=== PATIENT | male | born 1950 | race Hispanic/Latino ===

== ENCOUNTER 2018-05-24 14:32 | Inpatient (IN) | payer MEDICARE ==
[2018-05-24 15:53] LABS: Hematocrit TNR % (35.5-45.6); Hemoglobin TNR gm/dl (11.8-15.2); Mean Corpuscular Volume TNR fl (84-94); Red Blood Count TNR M/mm3 (3.65-5.03)
[2018-05-24 15:54] LABS: Eosinophils % (Auto) TNR % (0.0-4.3); Lymphocytes % (Auto) TNR % (13.4-35.0); Mean Corpuscular HGB Conc TNR % (32-34); Mean Corpuscular Hemoglobin TNR pg (28-32); Mean Platelet Volume TNR fl (6-12); Monocytes % (Auto) TNR % (0.0-7.3); Platelet Count TNR K/mm3 (140-440); Red Cell Distribution Width TNR % (13.2-15.2)
[2018-05-24 15:55] LABS: Basophils # (Auto) TNR K/mm3 (0.0-0.1); Basophils % (Auto) TNR % (0.0-1.8); Eosinophils # (Auto) TNR K/mm3 (0.0-0.4); Lymphocytes # (Auto) TNR K/mm3 (1.2-5.4); Monocytes # (Auto) TNR K/mm3 (0.0-0.8)
[2018-05-24 16:08] LABS: Alanine Aminotransferase 38 units/L (7-56); Albumin 4.2 g/dL (3.9-5); BUN/Creatinine Ratio 18; Blood Urea Nitrogen 11 mg/dL (9-20); Calcium 9.6 mg/dL (8.4-10.2); Hemolysis Index 30
[2018-05-24 16:11] LABS: Basophils % (Auto) 0.7 % (0.0-1.8); Eosinophils % (Auto) 0.1 % (0.0-4.3); Hematocrit 41.1 % (35.5-45.6); Hemoglobin 13.8 gm/dl (11.8-15.2); Lymphocytes # (Auto) 0.6 K/mm3 (1.2-5.4); Lymphocytes % (Auto) 13.4 % (13.4-35.0); Mean Corpuscular HGB Conc 34 % (32-34); Mean Corpuscular Hemoglobin 34 pg (28-32); Mean Corpuscular Volume 102 fl (84-94); Monocytes # (Auto) 0.6 K/mm3 (0.0-0.8); Monocytes % (Auto) 14.5 % (0.0-7.3); Red Blood Count 4.05 M/mm3 (3.65-5.03); Red Cell Distribution Width 15.9 % (13.2-15.2)
[2018-05-24 16:25] LABS: Platelet Count 79 K/mm3 (140-440)
[2018-05-24] MEDS ORDERED: VITAMIN B-1 100 MG, FOLVITE 1 MG, INFUVITE 10 ML in NACL 0.9% 1000 ML 1,000 ML IV ONE (16:27)
--- NOTE | 2018-05-24 16:32 | Emergency Department Report ---
HPI <ARI BROWN III - Last Filed: 05/24/18 21:11> - HPI HPI: 67-year-old male presents to the emergency department via EMS from [facility] for a medical clearance evaluation. The patient was sent to [place] from [facility] in [facility] with the complaint of alcohol dependence and need for detox/rehabilitation. The patient has a history of drinking 6-8 drinks per day. He also apparently has some history of multiple falls including a previous traumatic head injury causing a subdural hematoma. The patient had a CT scan done 2 days ago at [facility] that showed a smaller right subdural hematoma without any acute component seen, essentially showing his previous chronic subdural. He was then sent to [place] where they apparently initiated a 5 day Ativan detox protocol. However they found the patient to be altered with concern for dehydration and a concern for delirium tremens. The patient is awake and cooperative but his lucidity waxes and wanes. He himself has no current complaints at this time. <NINI WARREN S - Last Filed: 05/25/18 16:11> - General Chief Complaint: Psych Time Seen by Provider: 05/24/18 15:21 ED Past Medical Hx <ARI BROWN III - Last Filed: 05/24/18 21:11> - Past Medical History Additional medical history: subdural hematoma - Surgical History Past Surgical History?: Yes Additional Surgical History: hip fx surgery of right hip. left collar bone surgery - Social History Smoking Status: Former Smoker Substance Use Type: Alcohol <NINI WARREN - Last Filed: 05/25/18 16:11> - Medications Home Medications: Home Medications Medication Instructions Recorded Confirmed Last Taken Type No Known Home Medications [No 05/25/18 05/25/18 Unknown History Reported Home Medications] ED Review of Systems ROS: Stated complaint: PAIN Other details as noted in HPI <ARI BROWN III - Last Filed: 05/24/18 21:11> ROS: Stated complaint: PAIN Other details as noted in HPI Comment: All other systems reviewed and negative Constitutional: denies: chills, fever Eyes: denies: eye pain, eye discharge, vision change ENT: denies: ear pain, throat pain Respiratory: denies: cough, shortness of breath, wheezing Cardiovascular: denies: chest pain, palpitations Gastrointestinal: denies: abdominal pain, nausea, diarrhea Genitourinary: denies: urgency, dysuria Musculoskeletal: denies: back pain, joint swelling, arthralgia Skin: denies: rash, lesions Neurological: denies: headache, numbness <NINI WARREN Analisa - Last Filed: 05/25/18 16:11> Physical Exam - Physical Exam Vital Signs: Vital Signs 05/24/18 05/24/18 05/24/18 14:52 14:57 15:00 Temperature 98.9 F Pulse Rate 120 H 127 H Respiratory 20 18 22 Rate Blood Pressure 142/101 137/101 O2 Sat by Pulse 95 96 Oximetry 05/24/18 05/24/18 05/24/18 15:13 16:01 17:00 Temperature Pulse Rate 131 H 120 H Respiratory 24 19 22 Rate Blood Pressure 140/91 140/102 O2 Sat by Pulse 97 94 95 Oximetry 05/24/18 05/24/18 18:01 19:00 Temperature Pulse Rate 117 H 112 H Respiratory 24 26 H Rate Blood Pressure 154/102 141/101 O2 Sat by Pulse 96 Oximetry <ARI BROWN III - Last Filed: 05/24/18 21:11> - Physical Exam Vital Signs: Vital Signs 05/24/18 05/24/18 05/24/18 14:52 14:57 15:00 Temperature 98.9 F Pulse Rate 120 H 127 H Respiratory 20 18 22 Rate Blood Pressure 142/101 137/101 O2 Sat by Pulse 95 96 Oximetry 05/24/18 15:13 Temperature Pulse Rate Respiratory 24 Rate Blood Pressure O2 Sat by Pulse 97 Oximetry Physical Exam: GENERAL: The patient is well-developed well-nourished. HEENT: Normocephalic. Atraumatic. Patient has moist mucous membranes. EYES: Extraocular motions are intact. Pupils are equal and reactive to light bilaterally. NECK: Supple. Trachea is midline. CHEST/LUNGS: Clear to auscultation. There is no respiratory distress noted. HEART/CARDIOVASCULAR: Regular. There is mild to moderate tachycardia. There is no gallop rub or murmur. ABDOMEN: Abdomen is soft, nontender. Patient has normal bowel sounds. There is no abdominal distention. SKIN: Skin is warm and dry. NEURO: The patient is awake, alert, and oriented but does have some confusion. The patient is cooperative. No slurred speech. Cranial nerves II through XII grossly intact. Patient has moderate to severe distal extremity tremors. MUSCULOSKELETAL: There is no tenderness or deformity. There is no evidence of acute injury. <NINI WARREN - Last Filed: 05/25/18 16:11> ED Course Vital Signs 05/24/18 05/24/18 05/24/18 14:52 14:57 15:00 Temperature 98.9 F Pulse Rate 120 H 127 H Respiratory 20 18 22 Rate Blood Pressure 142/101 137/101 O2 Sat by Pulse 95 96 Oximetry 05/24/18 05/24/18 05/24/18 15:13 16:01 17:00 Temperature Pulse Rate 131 H 120 H Respiratory 24 19 22 Rate Blood Pressure 140/91 140/102 O2 Sat by Pulse 97 94 95 Oximetry 05/24/18 05/24/18 18:01 19:00 Temperature Pulse Rate 117 H 112 H Respiratory 24 26 H Rate Blood Pressure 154/102 141/101 O2 Sat by Pulse 96 Oximetry - Reevaluation(s) Reevaluation #2: Discussed results of head CT with radiologist. No acute findings. Chronic subdural hematoma and subdural hematoma is 1 mm smaller than it was on 2017 when compared to previous CT done at outside hospital. Hospitalist given updates. Hospitalist to admit patient. 05/24/18 21:11 <ARI BROWN III - Last Filed: 05/24/18 21:11> Vital Signs 05/24/18 05/24/18 05/24/18 14:52 14:57 15:00 Temperature 98.9 F Pulse Rate 120 H 127 H Respiratory 20 18 22 Rate Blood Pressure 142/101 137/101 O2 Sat by Pulse 95 96 Oximetry 05/24/18 15:13 Temperature Pulse Rate Respiratory 24 Rate Blood Pressure O2 Sat by Pulse 97 Oximetry <NINI WARREN - Last Filed: 05/25/18 16:11> ED Medical Decision Making - Lab Data Result diagrams: 05/24/18 16:03 05/24/18 15:32 <ARI BROWN III - Last Filed: 05/24/18 21:11> - Lab Data Result diagrams: 05/24/18 16:03 05/25/18 09:33 - EKG Data -: EKG Interpreted by Ks EKG shows normal: sinus rhythm, axis, intervals, QRS complexes, ST-T waves Rate: tachycardia (110 bpm) - EKG Data When compared to previous EKG there are: previous EKG unavailable Interpretation: normal EKG (with sinus tachycardia at 110 bpm) - Radiology Data Radiology results: report reviewed PROCEDURE: CT HEAD/BRAIN WO CON TECHNIQUE: Computerized tomography of the head was performed without contrast material. HISTORY: confusion COMPARISON: No prior studies are available for comparison. FINDINGS: There is a hypodense right frontal epidural fluid collection measuring up to 13 millimeters in thickness suggesting a chronic epidural hematoma. No acute hemorrhage is seen. There is central and cortical atrophy appropriate for the patient's age. There is no midline shift or herniation. The bony calvarium is intact. Paranasal sinuses are clear. IMPRESSION: 13 millimeter thick chronic right frontal epidural hematoma without significant mass effect. There is no midline shift. Dr. Brown was notified at 8:05 pm CDT. Transcribed By: CO Dictated By: BARTOLO ÁLVAREZ MD Electronically Authenticated By: BARTOLO ÁLVAREZ MD Signed Date/Time: 05/24/182105 - Medical Decision Making Patient presented from [facility] for further evaluation of his alcohol withdrawal due to some questionable delirium or altered mental status. The patient was a 16 on the alcohol withdrawal scale and has received some IV Ativan. He is slightly anxious but has significant extremity tremors and his lucidity waxes and wanes. The patient has a history of previous head trauma and subdural hematoma. There is a CT scan of the head without contrast that is on the chart from 2 days ago that was done in [place] that does not show any acute process regarding his previous subdural hematoma. The patient has tentatively been accepted for admission by the hospitalist, Dr. Tate, but a repeat CT scan of the head without contrast has been ordered. This will be done and is negative for any acute process, the patient will be admitted to the hospital. The CT scan results will be followed by my colleague, Dr. Brown, and if there is some abnormality found or acute process then he will seek further disposition and/or treatment. - Differential Diagnosis psychosis, alcohol withdrawal, dementia, delirium tremens <NINI WARREN - Last Filed: 05/25/18 16:11> Critical care attestation.: If time is entered above; I have spent that time in minutes in the direct care of this critically ill patient, excluding procedure time. <ARI BROWN III - Last Filed: 05/24/18 21:11> Critical Care Time: Yes Critical care time in (mins) excluding proc time.: 35 Critical care attestation.: If time is entered above; I have spent that time in minutes in the direct care of this critically ill patient, excluding procedure time. Critical care time spent on this patient and doing his initial evaluation, multiple re-evaluations, ordering of labs and imaging, ordering and evaluation of the alcohol withdrawal protocol and discussion with the admitting hospitalist. Critical Care Time: 35 minutes <NINI WARREN S - Last Filed: 05/25/18 16:11> ED Disposition <ARI BROWN III - Last Filed: 05/24/18 21:11> Is pt being admited?: Yes <NINI WARREN - Last Filed: 05/25/18 16:11> Clinical Impression: Alcohol withdrawal delirium, Chronic subdural hematoma, Encephalopathy Disposition: DC-09 OP ADMIT IP TO THIS HOSP Condition: Serious
[2018-05-24] MEDS: ATIVAN IV PRN ×3 (17:57→23:40)
--- NOTE | 2018-05-24 18:23 | History and Physical Report ---
History of Present Illness Chief complaint: Im shaking History of present illness: 67 YO Male currently an inpatient at [facility] for ETOH Detoxification with chronic Epidural Hematoma secondary to recurrent falls, ETOH Dependence, Severe Malnutrition presents to ED for evaluation. Pt was transfered from [facility] in [place], [place] for treatment of ETOH dependence. Pt was seen and evaluated prior to transfer for Epidural hematoma and was found to have no residual symptoms and no indication for surgical intervention. Pt seen and evaluated in ED. Pt states that he drinks 6-8 drinks daily, and his last drink was 4-5 days ago. Pt states that he has experienced tremors over the past 3 days. Pt denies fever, chills, CP, palpitatons, NVD, syncope, loss of bowel/ bladder continence. Pt is mildly confused but is able to provide detailed history. Pt was found by [place] staff to have tremors, mild confusion. EMS was notified, and the patient was transported to [facility] for further care and evaluation. Pt seen and evaluated in ED and found to have symptoms consistent with ETOH Withdrawl Syndrome, Encephalopathy. Pt underwent repeat CT Head. Results discussed with Radiologist. Pt has chronic Epidural Hemotoma that is decreasing in size in comparison to previous imaging, without active hemorrhage , and without midline shift. Pt admitted to telemetry and initiated on Alcohol withdrawl protocol.. Past History Past Medical History: other (Chronic SDH, ETOH Abuse, Severe Malnutrition) Past Surgical History: Other (Right Hip, left clavicle) Social history: single, alcohol abuse Family history: no significant family history (reviewed) Medications and Allergies Allergies Allergy/AdvReac Type Severity Reaction Status Date / Time No Known Allergies Allergy Unverified 05/24/18 15:12 Active Meds: Active Medications Thiamine HCl 100 mg/ Folic Acid 1 mg/ Multivitamins/Minerals 10 ml/ Sodium Chloride 1,011.2 mls @ 250 mls/hr IV ONCE ONE Stop: 05/24/18 20:29 Last Admin: 05/24/18 17:36 Dose: 250 mls/hr Lorazepam (Ativan) 2 mg IV Q1HR PRN PRN Reason: CIWA-Ar 8-15 Lorazepam (Ativan) 4 mg IV Q1HR PRN PRN Reason: CIWA-Ar 16-25 Last Admin: 05/24/18 17:57 Dose: 4 mg Lorazepam (Ativan) 4 mg IV Q15MIN PRN PRN Reason: CIWA-Ar >25 Review of Systems Constitutional: other (tremors), no weight loss, no weight gain, no fever, no chills Ears, nose, mouth and throat: no ear pain, no ear discharge, no tinnitis, no decreased hearing, no nose pain Cardiovascular: no chest pain, no orthopnea, no palpitations, no rapid/ irregular heart beat, no edema Respiratory: no cough, no cough with sputum, no excessive sputum, no hemoptysis , no shortness of breath Gastrointestinal: no nausea, no vomiting Genitourinary Male: no hematuria, no flank pain, no discharge, no urinary frequency, no urinary hesitancy, no incontinence Musculoskeletal: no neck stiffness, no neck pain, no arm numbness/tingling, no shooting leg pain, no leg numbness/tingling Integumentary: no rash, no pruritis, no sores Neurological: tremors, no head injury, no transient paralysis, no paralysis, no weakness, no parathesias, no tingling, no seizures, no syncope, no vertigo Psychiatric: no anxiety, no memory loss, no change in sleep habits, no sleep disturbances, no insomnia, no hypersomnia, no change in libido Endocrine: no cold intolerance, no heat intolerance, no polyphagia, no polydipsia, no polyuria, no nocturia Hematologic/Lymphatic: no easy bruising, no easy bleeding, no lymphadenopathy Allergic/Immunologic: no urticaria, no allergic rhinitis, no wheezing, no anaphylaxis, no angioedema Exam - Constitutional Vitals: Temp Pulse Resp BP Pulse Ox 98.9 F 127 H 24 137/101 97 05/24/18 14:57 05/24/18 15:00 05/24/18 15:13 05/24/18 15:00 05/24/18 15:13 General appearance: Present: mild distress, cachectic - EENT Eyes: Present: PERRL ENT: hearing intact, clear oral mucosa - Neck Neck: Present: supple, normal ROM - Respiratory Respiratory effort: normal Respiratory: bilateral: CTA - Cardiovascular Heart Sounds: Present: S1 & S2. Absent: rub, click - Extremities Extremities: pulses symmetrical, No edema Peripheral Pulses: within normal limits - Abdominal General gastrointestinal: Present: soft, non-tender, non-distended, normal bowel sounds Male genitourinary: Present: normal - Integumentary Integumentary: Present: clear, warm, dry - Musculoskeletal Musculoskeletal: gait normal, strength equal bilaterally - Psychiatric Psychiatric: appropriate mood/affect, intact judgment & insight, agitated - Neurologic Neurologic: CNII-XII intact, moves all extremities Results - Labs CBC & Chem 7: 05/24/18 16:03 05/24/18 15:32 Labs: Abnormal lab results 05/24/18 05/24/18 05/24/18 Range/Units 15:32 15:32 15:32 WBC (4.5-11.0) K/mm3 MCV (84-94) fl MCH (28-32) pg RDW (13.2-15.2) % Plt Count (140-440) K/mm3 [place] % (Auto) (0.0-7.3) % Lymph # (1.2-5.4) K/mm3 Seg Neutrophils % (40.0-70.0) % Sodium 136 L (137-145) mmol/L Chloride 96.6 L (98-107) mmol/L Creatinine 0.6 L (0.8-1.5) mg/dL Glucose 143 H (75-100) mg/dL Total Bilirubin 1.50 H (0.1-1.2) mg/dL AST 52 H (5-40) units/L Salicylates < 0.3 L (2.8-20.0) mg/dL Acetaminophen < 5.0 L (10.0-30.0) ug/mL 05/24/18 Range/Units 16:03 WBC 4.4 L (4.5-11.0) K/mm3 MCV 102 H (84-94) fl MCH 34 H (28-32) pg RDW 15.9 H (13.2-15.2) % Plt Count 79 L (140-440) K/mm3 [place] % (Auto) 14.5 H (0.0-7.3) % Lymph # 0.6 L (1.2-5.4) K/mm3 Seg Neutrophils % 71.3 H (40.0-70.0) % Sodium (137-145) mmol/L Chloride (98-107) mmol/L Creatinine (0.8-1.5) mg/dL Glucose (75-100) mg/dL Total Bilirubin (0.1-1.2) mg/dL AST (5-40) units/L Salicylates (2.8-20.0) mg/dL Acetaminophen (10.0-30.0) ug/mL Assessment and Plan - Patient Problems (1) Alcohol withdrawal delirium Current Visit: Yes Status: Acute Plan to address problem: Thiamine, Folic Acid, Multivitamin, Ativan PRN, CIWA protocol. (2) Epidural hematoma Current Visit: Yes Status: Acute Plan to address problem: Neuro checks, supportive care, Fall precautions,Repeat CT Head if neuro status changes. (3) Severe malnutrition Current Visit: Yes Status: Acute Plan to address problem: Encourage increased protein intake. (4) Encephalopathy Current Visit: Yes Status: Acute Plan to address problem: CT Head, Neuro checks, thyroid panel, aspiration precautions. (5) DVT prophylaxis Current Visit: Yes Status: Acute Plan to address problem: SCD to BLE while in bed.
[2018-05-24] MEDS ORDERED: PROVENTIL IH PRN (20:46)
[2018-05-24] MEDS ORDERED: ZOFRAN IV PRN (20:46)
[2018-05-24] MEDS ORDERED: TYLENOL PO PRN (20:46)
[2018-05-24] MEDS ORDERED: SODIUM CHLORIDE FLUSH SYRINGE 10 ML IV PRN (20:46)
[2018-05-24] MEDS ORDERED: THERAGRAN Tab PO ONE ×2 (20:48→22:01)
[2018-05-24] MEDS ORDERED: VITAMIN B-1 PO ONE (20:48)
--- NOTE | 2018-05-24 21:07 | Cat Scan Report ---
FINAL REPORT PROCEDURE: CT HEAD/BRAIN WO CON TECHNIQUE: Computerized tomography of the head was performed without contrast material. HISTORY: confusion COMPARISON: No prior studies are available for comparison. FINDINGS: There is a hypodense right frontal epidural fluid collection measuring up to 13 millimeters in thickness suggesting a chronic epidural hematoma. No acute hemorrhage is seen. There is central and cortical atrophy appropriate for the patient's age. There is no midline shift or herniation. The bony calvarium is intact. Paranasal sinuses are clear. IMPRESSION: 13 millimeter thick chronic right frontal epidural hematoma without significant mass effect. There is no midline shift. Dr. Richmond was notified at 8:05 pm CDT.
[2018-05-24] MEDS ORDERED: VITAMIN B-1 ONE (22:03)
[2018-05-24] MEDS: SODIUM CHLORIDE FLUSH SYRINGE 10 ML IV SCH (22:18)
[2018-05-24 22:24] LABS: Free T4 (Free Thyroxine) 1.27 ng/dL (0.76-1.46)
[2018-05-25] MEDS: ATIVAN IV PRN ×6 (04:16→22:17)
[2018-05-25 07:20] LABS: Bilirubin,Urine NEG (Negative); Blood,Urine SM (Negative); Calcium Oxalate Crystals,Urine 3+; Color,Urine Yellow (Yellow); Mucus,Urine FEW /HPF; Protein,Urine <15 mg/dL mg/dL (Negative)
[2018-05-25 07:36] LABS: Amphetamine Screen,Urine PRESUMPTIVE NEGATIVE; Benzodiazepines Screen,Urine PRESUMPTIVE NEGATIVE; Cannabinoid Screen,Urine PRESUMPTIVE NEGATIVE; Cocaine Screen,Urine PRESUMPTIVE NEGATIVE; Methadone Screen,Urine PRESUMPTIVE NEGATIVE; Opiate Screen,Urine PRESUMPTIVE NEGATIVE
[2018-05-25] MEDS: FOLVITE PO SCH (10:17)
[2018-05-25] MEDS: SODIUM CHLORIDE FLUSH SYRINGE 10 ML IV SCH ×2 (10:18→22:42)
[2018-05-25 11:08] LABS: Alanine Aminotransferase 36 units/L (7-56); Albumin 4.3 g/dL (3.9-5); BUN/Creatinine Ratio 24; Blood Urea Nitrogen 12 mg/dL (9-20); Calcium 9.4 mg/dL (8.4-10.2); Hemolysis Index 13
--- NOTE | 2018-05-25 15:19 | Progress Note ---
Assessment and Plan Assessment and plan: 67 YO Male currently an inpatient at [facility] for ETOH Detoxification with chronic Epidural Hematoma secondary to recurrent falls, ETOH Dependence, Severe Malnutrition presents to ED for evaluation. Pt was transfered from [facility] in [place], [place] for treatment of ETOH dependence. Pt was seen and evaluated prior to transfer for Epidural hematoma and was found to have no residual symptoms and no indication for surgical intervention. Pt seen and evaluated in ED. Pt states that he drinks 6-8 drinks daily, and his last drink was 4-5 days ago. Pt states that he has experienced tremors over the past 3 days. Pt denies fever, chills, CP, palpitatons, NVD, syncope, loss of bowel/ bladder continence. Pt is mildly confused but is able to provide detailed history. Pt was found by [place] staff to have tremors, mild confusion. EMS was notified, and the patient was transported to [facility] for further care and evaluation. Pt seen and evaluated in ED and found to have symptoms consistent with ETOH Withdrawl Syndrome, Encephalopathy. Pt underwent repeat CT Head. Results discussed with Radiologist. Pt has chronic Epidural Hemotoma that is decreasing in size in comparison to previous imaging, without active hemorrhage , and without midline shift. Pt admitted to telemetry and initiated on Alcohol withdrawal protocol. (1) Alcohol withdrawal delirium Current Visit: Yes Status: Acute Plan to address problem: Thiamine, Folic Acid, Multivitamin, Ativan PRN, CIWA protocol. Still with tremor, Continue current management (2) Epidural hematoma Current Visit: Yes Status: Acute Plan to address problem: Neuro checks, supportive care, Fall precautions, Repeat CT Head if neuro status changes. (3) Severe malnutrition Current Visit: Yes Status: Acute Plan to address problem: Encourage increased protein intake. (4) Encephalopathy Current Visit: Yes Status: Acute Plan to address problem: CT Head, Neuro checks, thyroid panel, aspiration precautions. (5) DVT prophylaxis Current Visit: Yes Status: Acute Plan to address problem: SCD to BLE while in bed. History Interval history: Patient seen and examined, still with tremors and some confusion Hospitalist Physical - Physical exam Narrative exam: General appearance: Present: mild distress, cachectic, tremor - EENT Eyes: Present: PERRL ENT: hearing intact, clear oral mucosa - Neck Neck: Present: supple, normal ROM - Respiratory Respiratory effort: normal Respiratory: bilateral: CTA - Cardiovascular Heart Sounds: Present: S1 & S2. Absent: rub, click - Extremities Extremities: pulses symmetrical, No edema Peripheral Pulses: within normal limits - Abdominal General gastrointestinal: Present: soft, non-tender, non-distended, normal bowel sounds Male genitourinary: Present: normal - Integumentary Integumentary: Present: clear, warm, dry - Musculoskeletal Musculoskeletal: gait normal, strength equal bilaterally - Psychiatric Psychiatric: appropriate mood/affect, intact judgment & insight, agitated - Neurologic Neurologic: CNII-XII intact, moves all extremities - Constitutional Vitals: Temp Pulse Resp BP Pulse Ox 97.8 F 143 H 20 113/85 96 05/25/18 12:52 05/25/18 12:52 05/25/18 12:52 05/25/18 12:52 05/25/18 12:52 General appearance: Present: mild distress, cachectic Results - Labs CBC & Chem 7: 05/24/18 16:03 05/25/18 09:33 Labs: Laboratory Last Values WBC 4.4 K/mm3 (4.5-11.0) L 05/24/18 16:03 RBC 4.05 M/mm3 (3.65-5.03) 05/24/18 16:03 Hgb 13.8 gm/dl (11.8-15.2) 05/24/18 16:03 Hct 41.1 % (35.5-45.6) 05/24/18 16:03 MCV 102 fl (84-94) H 05/24/18 16:03 MCH 34 pg (28-32) H 05/24/18 16:03 MCHC 34 % (32-34) 05/24/18 16:03 RDW 15.9 % (13.2-15.2) H 05/24/18 16:03 Plt Count 79 K/mm3 (140-440) L 05/24/18 16:03 Lymph % (Auto) 13.4 % (13.4-35.0) 05/24/18 16:03 [place] % (Auto) 14.5 % (0.0-7.3) H 05/24/18 16:03 Eos % (Auto) 0.1 % (0.0-4.3) 05/24/18 16:03 Baso % (Auto) 0.7 % (0.0-1.8) 05/24/18 16:03 Lymph # 0.6 K/mm3 (1.2-5.4) L 05/24/18 16:03 [place] # 0.6 K/mm3 (0.0-0.8) 05/24/18 16:03 Eos # 0.0 K/mm3 (0.0-0.4) 05/24/18 16:03 Baso # 0.0 K/mm3 (0.0-0.1) 05/24/18 16:03 Add Manual Diff TNR 05/24/18 15:32 Seg Neutrophils % 71.3 % (40.0-70.0) H 05/24/18 16:03 Seg Neutrophils # 3.1 K/mm3 (1.8-7.7) 05/24/18 16:03 Sodium 138 mmol/L (137-145) 05/25/18 09:33 Potassium 3.5 mmol/L (3.6-5.0) L 05/25/18 09:33 Chloride 97.8 mmol/L (98-107) L 05/25/18 09:33 Carbon Dioxide 20 mmol/L (22-30) L 05/25/18 09:33 Anion Gap 24 mmol/L 05/25/18 09:33 BUN 12 mg/dL (9-20) 05/25/18 09:33 Creatinine 0.5 mg/dL (0.8-1.5) L 05/25/18 09:33 Estimated GFR > 60 ml/min 05/25/18 09:33 BUN/Creatinine Ratio 24 % 05/25/18 09:33 Glucose 104 mg/dL (75-100) H 05/25/18 09:33 Calcium 9.4 mg/dL (8.4-10.2) 05/25/18 09:33 Phosphorus 3.20 mg/dL (2.5-4.5) 05/24/18 15:32 Magnesium 2.10 mg/dL (1.7-2.3) 05/24/18 15:32 Total Bilirubin 1.80 mg/dL (0.1-1.2) H 05/25/18 09:33 AST 49 units/L (5-40) H 05/25/18 09:33 ALT 36 units/L (7-56) 05/25/18 09:33 Alkaline Phosphatase 100 units/L (35-129) 05/25/18 09:33 Ammonia 35.0 umol/L (25-60) 05/24/18 15:49 Total Protein 7.5 g/dL (6.3-8.2) 05/25/18 09:33 Albumin 4.3 g/dL (3.9-5) 05/25/18 09:33 Albumin/Globulin Ratio 1.3 % 05/25/18 09:33 TSH 2.340 mlU/mL (0.270-4.200) 05/24/18 15:32 Free T4 1.27 ng/dL (0.76-1.46) 05/24/18 15:32 Urine Color Yellow (Yellow) 05/25/18 06:30 Urine Turbidity Slightly-cloudy (Clear) 05/25/18 06:30 Urine pH 7.0 (5.0-7.0) 05/25/18 06:30 Ur Specific [place] 1.016 (1.003-1.030) 05/25/18 06:30 Urine Protein <15 mg/dl mg/dL (Negative) 05/25/18 06:30 Urine Glucose (UA) Neg mg/dL (Negative) 05/25/18 06:30 Urine Ketones Tr mg/dL (Negative) 05/25/18 06:30 Urine Blood Sm (Negative) 05/25/18 06:30 Urine Nitrite Neg (Negative) 05/25/18 06:30 Urine Bilirubin Neg (Negative) 05/25/18 06:30 Urine Urobilinogen 4.0 mg/dL (<2.0) 05/25/18 06:30 Ur Leukocyte Esterase Neg (Negative) 05/25/18 06:30 Urine WBC (Auto) 3.0 /HPF (0.0-6.0) 05/25/18 06:30 Urine RBC (Auto) 5.0 /HPF (0.0-6.0) 05/25/18 06:30 U Epithel Cells (Auto) < 1.0 /HPF (0-13.0) 05/25/18 06:30 Calcium Oxalate Crystal 3+ 05/25/18 06:30 Urine Mucus Few /HPF 05/25/18 06:30 Salicylates < 0.3 mg/dL (2.8-20.0) L 05/24/18 15:32 Urine Opiates Screen Presumptive negative 05/25/18 06:30 Urine Methadone Screen Presumptive negative 05/25/18 06:30 Acetaminophen < 5.0 ug/mL (10.0-30.0) L 05/24/18 15:32 Ur Barbiturates Screen Presumptive negative 05/25/18 06:30 Ur Phencyclidine Scrn Presumptive negative 05/25/18 06:30 Ur Amphetamines Screen Presumptive negative 05/25/18 06:30 U Benzodiazepines Scrn Presumptive negative 05/25/18 06:30 Urine Cocaine Screen Presumptive negative 05/25/18 06:30 U Marijuana (THC) Screen Presumptive negative 05/25/18 06:30 Drugs of Abuse Note Disclamer 05/25/18 06:30 Plasma/Serum Alcohol < 0.01 % (0-0.07) 05/24/18 15:32
[2018-05-25] MEDS: 1: FOLVITE 1 MG, INFUVITE 10 ML, VITAMIN B-1 100 MG in NACL 0.9% 1000 ML 988.8 ML 2: NA IV SCH (18:16)
[2018-05-26] MEDS: ATIVAN IV PRN ×3 (00:41→10:52)
[2018-05-26] MEDS: 1: FOLVITE 1 MG, INFUVITE 10 ML, VITAMIN B-1 100 MG in NACL 0.9% 1000 ML 988.8 ML 2: NA IV SCH ×2 (02:40→14:32)
[2018-05-26] MEDS ORDERED: NACL 0.9% 1000 ML 1,000 ML IV SCH (03:00)
[2018-05-26 05:48] LABS: Hematocrit 42.6 % (35.5-45.6); Hemoglobin 14.4 gm/dl (11.8-15.2); Mean Corpuscular HGB Conc 34 % (32-34); Mean Corpuscular Hemoglobin 35 pg (28-32); Mean Corpuscular Volume 103 fl (84-94); Red Blood Count 4.14 M/mm3 (3.65-5.03); Red Cell Distribution Width 14.9 % (13.2-15.2)
[2018-05-26 06:07] LABS: Alanine Aminotransferase 30 units/L (7-56); Albumin 3.8 g/dL (3.9-5); BUN/Creatinine Ratio 40; Blood Urea Nitrogen 16 mg/dL (9-20); Calcium 8.9 mg/dL (8.4-10.2); Hemolysis Index 34
[2018-05-26 06:38] LABS: Platelet Count 83 K/mm3 (140-440)
[2018-05-26] MEDS: SODIUM CHLORIDE FLUSH SYRINGE 10 ML IV SCH ×2 (10:53→21:39)
[2018-05-26] MEDS: FOLVITE PO SCH (10:53)
[2018-05-26] MEDS: K-DUR PO SCH (14:31)
[2018-05-26] MEDS: LIBRIUM PO SCH ×2 (14:31→19:44)
--- NOTE | 2018-05-26 15:02 | Progress Note ---
Assessment and Plan Assessment and plan: Alcohol withdrawal with delirium -Continue [facility] protocol -Librium added Epidural hematoma likely 2/2 falls -Continue fall precautions Hypokalemia -on repletion, will monitor level Elevated liver function tests -Likely secondary to alcohol abuse -Will do abdominal ultrasound for further evaluation Disposition: For discharge when medically stable History Interval history: Patient was seen severely agitated and in restraints. Hospitalist Physical - Constitutional Vitals: Temp Pulse Resp BP Pulse Ox 98.1 F 94 H 20 132/93 96 05/26/18 04:56 05/26/18 08:56 05/26/18 08:56 05/26/18 08:56 05/26/18 08:56 General appearance: Present: other (Pt was seen severely agitated) - EENT Eyes: Present: PERRL, EOM intact ENT: hearing intact, clear oral mucosa - Neck Neck: Present: supple - Respiratory Respiratory effort: normal Respiratory: bilateral: CTA - Cardiovascular Rhythm: regular Heart Sounds: Present: S1 & S2 - Extremities Extremities: No edema - Abdominal General gastrointestinal: soft, non-tender, non-distended, normal bowel sounds - Neurologic Neurologic: CNII-XII intact Results - Labs CBC & Chem 7: 05/26/18 04:37 05/26/18 04:37 Labs: Laboratory Last Values WBC 5.1 K/mm3 (4.5-11.0) 05/26/18 04:37 RBC 4.14 M/mm3 (3.65-5.03) 05/26/18 04:37 Hgb 14.4 gm/dl (11.8-15.2) 05/26/18 04:37 Hct 42.6 % (35.5-45.6) 05/26/18 04:37 MCV 103 fl (84-94) H 05/26/18 04:37 MCH 35 pg (28-32) H 05/26/18 04:37 MCHC 34 % (32-34) 05/26/18 04:37 RDW 14.9 % (13.2-15.2) 05/26/18 04:37 Plt Count 83 K/mm3 (140-440) L 05/26/18 04:37 Lymph % (Auto) 13.4 % (13.4-35.0) 05/24/18 16:03 [place] % (Auto) 14.5 % (0.0-7.3) H 05/24/18 16:03 Eos % (Auto) 0.1 % (0.0-4.3) 05/24/18 16:03 Baso % (Auto) 0.7 % (0.0-1.8) 05/24/18 16:03 Lymph # 0.6 K/mm3 (1.2-5.4) L 05/24/18 16:03 [place] # 0.6 K/mm3 (0.0-0.8) 05/24/18 16:03 Eos # 0.0 K/mm3 (0.0-0.4) 05/24/18 16:03 Baso # 0.0 K/mm3 (0.0-0.1) 05/24/18 16:03 Add Manual Diff TNR 05/24/18 15:32 Seg Neutrophils % 71.3 % (40.0-70.0) H 05/24/18 16:03 Seg Neutrophils # 3.1 K/mm3 (1.8-7.7) 05/24/18 16:03 Sodium 139 mmol/L (137-145) 05/26/18 04:37 Potassium 3.4 mmol/L (3.6-5.0) L 05/26/18 04:37 Chloride 105.3 mmol/L (98-107) 05/26/18 04:37 Carbon Dioxide 20 mmol/L (22-30) L 05/26/18 04:37 Anion Gap 17 mmol/L 05/26/18 04:37 BUN 16 mg/dL (9-20) 05/26/18 04:37 Creatinine 0.4 mg/dL (0.8-1.5) L 05/26/18 04:37 Estimated GFR > 60 ml/min 05/26/18 04:37 BUN/Creatinine Ratio 40 % 05/26/18 04:37 Glucose 68 mg/dL (75-100) L 05/26/18 04:37 Calcium 8.9 mg/dL (8.4-10.2) 05/26/18 04:37 Phosphorus 3.20 mg/dL (2.5-4.5) 05/24/18 15:32 Magnesium 2.10 mg/dL (1.7-2.3) 05/24/18 15:32 Total Bilirubin 1.50 mg/dL (0.1-1.2) H 05/26/18 04:37 AST 42 units/L (5-40) H 05/26/18 04:37 ALT 30 units/L (7-56) 05/26/18 04:37 Alkaline Phosphatase 87 units/L (35-129) 05/26/18 04:37 Ammonia 35.0 umol/L (25-60) 05/24/18 15:49 Total Protein 6.8 g/dL (6.3-8.2) 05/26/18 04:37 Albumin 3.8 g/dL (3.9-5) L 05/26/18 04:37 Albumin/Globulin Ratio 1.3 % 05/26/18 04:37 TSH 2.340 mlU/mL (0.270-4.200) 05/24/18 15:32 Free T4 1.27 ng/dL (0.76-1.46) 05/24/18 15:32 Urine Color Yellow (Yellow) 05/25/18 06:30 Urine Turbidity Slightly-cloudy (Clear) 05/25/18 06:30 Urine pH 7.0 (5.0-7.0) 05/25/18 06:30 Ur Specific [place] 1.016 (1.003-1.030) 05/25/18 06:30 Urine Protein <15 mg/dl mg/dL (Negative) 05/25/18 06:30 Urine Glucose (UA) Neg mg/dL (Negative) 05/25/18 06:30 Urine Ketones Tr mg/dL (Negative) 05/25/18 06:30 Urine Blood Sm (Negative) 05/25/18 06:30 Urine Nitrite Neg (Negative) 05/25/18 06:30 Urine Bilirubin Neg (Negative) 05/25/18 06:30 Urine Urobilinogen 4.0 mg/dL (<2.0) 05/25/18 06:30 Ur Leukocyte Esterase Neg (Negative) 05/25/18 06:30 Urine WBC (Auto) 3.0 /HPF (0.0-6.0) 05/25/18 06:30 Urine RBC (Auto) 5.0 /HPF (0.0-6.0) 05/25/18 06:30 U Epithel Cells (Auto) < 1.0 /HPF (0-13.0) 05/25/18 06:30 Calcium Oxalate Crystal 3+ 05/25/18 06:30 Urine Mucus Few /HPF 05/25/18 06:30 Salicylates < 0.3 mg/dL (2.8-20.0) L 05/24/18 15:32 Urine Opiates Screen Presumptive negative 05/25/18 06:30 Urine Methadone Screen Presumptive negative 05/25/18 06:30 Acetaminophen < 5.0 ug/mL (10.0-30.0) L 05/24/18 15:32 Ur Barbiturates Screen Presumptive negative 05/25/18 06:30 Ur Phencyclidine Scrn Presumptive negative 05/25/18 06:30 Ur Amphetamines Screen Presumptive negative 05/25/18 06:30 U Benzodiazepines Scrn Presumptive negative 05/25/18 06:30 Urine Cocaine Screen Presumptive negative 05/25/18 06:30 U Marijuana (THC) Screen Presumptive negative 05/25/18 06:30 Drugs of Abuse Note Disclamer 05/25/18 06:30 Plasma/Serum Alcohol < 0.01 % (0-0.07) 05/24/18 15:32
--- NOTE | 2018-05-26 16:54 | Ultrasound Report ---
FINAL REPORT EXAM: US ABDOMEN LIMITED HISTORY: elevated LFT TECHNIQUE: Grayscale and color-flow imaging of the right upper quadrant was performed. Comparison: None FINDINGS: Pancreas: Not well visualized due to artifact. Liver: Visualization detail is somewhat limited by artifact. There is a coarsened echotexture which can be seen with hepatocellular disease. There is no demonstration of a focal mass. There is increased echogenicity of the liver suggestive of fatty infiltration/steatosis. Gallbladder: Moderately distended and without evidence of gallstones or gallbladder wall thickening (1.6 millimeters). There is no demonstration of pericholecystic fluid. Common bile duct: Normal caliber (4.8 millimeters). Right kidney: Measures 11.2 centimeters in the maximal craniocaudal dimension. There is no demonstration of hydronephrosis, renal calculi or renal mass. No free fluid is demonstrated in the right upper quadrant. IMPRESSION: 1. Study somewhat degraded by artifact. 2. Pancreas not well visualized. 3. Coarsened echotexture of the liver which can be seen with hepatocellular disease. Evidence of fatty infiltration/steatosis of the liver. If further imaging is required, CT may be helpful. 4. No ultrasound evidence of acute cholecystitis or gallstones.
[2018-05-26] MEDS: FOLVITE 1 MG, VITAMIN B-1 100 MG, INFUVITE 10 ML in NACL 0.9% 1000 ML 1,000 ML IV SCH (18:15)
[2018-05-27] MEDS: NACL 0.9% 1000 ML 1,000 ML IV SCH ×2 (02:29→15:12)
[2018-05-27] MEDS: LIBRIUM PO SCH ×4 (08:45→21:33)
[2018-05-27] MEDS: K-DUR PO SCH (09:26)
[2018-05-27] MEDS: SODIUM CHLORIDE FLUSH SYRINGE 10 ML IV SCH ×2 (09:27→21:54)
--- NOTE | 2018-05-27 10:43 | Progress Note ---
Assessment and Plan Assessment and plan: Alcohol withdrawal with delirium -Continue [facility] protocol -Librium dose increased Epidural hematoma likely 2/2 falls -Continue fall precautions Hypokalemia -on repletion, will monitor level Elevated liver function tests -Abdominal ultrasound suggestive of hepatocellular disease, likely from chronic alcohol abuse Disposition: For discharge when medically stable History Interval history: The patient's agitation has improved. He is now oriented 3 Hospitalist Physical - Constitutional Vitals: Temp Pulse Resp BP Pulse Ox 98.1 F 86 18 148/100 97 05/27/18 08:38 05/27/18 08:38 05/27/18 10:00 05/27/18 08:38 05/27/18 10:00 General appearance: Present: no acute distress, other (agitation improved) - EENT Eyes: Present: PERRL, EOM intact ENT: hearing intact, clear oral mucosa - Neck Neck: Present: supple, normal ROM - Respiratory Respiratory effort: normal Respiratory: bilateral: CTA - Cardiovascular Rhythm: regular Heart Sounds: Present: S1 & S2 - Extremities Extremities: No edema - Abdominal General gastrointestinal: soft, non-tender, non-distended, normal bowel sounds - Integumentary Integumentary: Present: clear, warm, dry - Neurologic Neurologic: CNII-XII intact Results - Labs CBC & Chem 7: 05/26/18 04:37 05/26/18 04:37 Labs: Laboratory Last Values WBC 5.1 K/mm3 (4.5-11.0) 05/26/18 04:37 RBC 4.14 M/mm3 (3.65-5.03) 05/26/18 04:37 Hgb 14.4 gm/dl (11.8-15.2) 05/26/18 04:37 Hct 42.6 % (35.5-45.6) 05/26/18 04:37 MCV 103 fl (84-94) H 05/26/18 04:37 MCH 35 pg (28-32) H 05/26/18 04:37 MCHC 34 % (32-34) 05/26/18 04:37 RDW 14.9 % (13.2-15.2) 05/26/18 04:37 Plt Count 83 K/mm3 (140-440) L 05/26/18 04:37 Lymph % (Auto) 13.4 % (13.4-35.0) 05/24/18 16:03 [place] % (Auto) 14.5 % (0.0-7.3) H 05/24/18 16:03 Eos % (Auto) 0.1 % (0.0-4.3) 05/24/18 16:03 Baso % (Auto) 0.7 % (0.0-1.8) 05/24/18 16:03 Lymph # 0.6 K/mm3 (1.2-5.4) L 05/24/18 16:03 [place] # 0.6 K/mm3 (0.0-0.8) 05/24/18 16:03 Eos # 0.0 K/mm3 (0.0-0.4) 05/24/18 16:03 Baso # 0.0 K/mm3 (0.0-0.1) 05/24/18 16:03 Add Manual Diff TNR 05/24/18 15:32 Seg Neutrophils % 71.3 % (40.0-70.0) H 05/24/18 16:03 Seg Neutrophils # 3.1 K/mm3 (1.8-7.7) 05/24/18 16:03 Sodium 139 mmol/L (137-145) 05/26/18 04:37 Potassium 3.4 mmol/L (3.6-5.0) L 05/26/18 04:37 Chloride 105.3 mmol/L (98-107) 05/26/18 04:37 Carbon Dioxide 20 mmol/L (22-30) L 05/26/18 04:37 Anion Gap 17 mmol/L 05/26/18 04:37 BUN 16 mg/dL (9-20) 05/26/18 04:37 Creatinine 0.4 mg/dL (0.8-1.5) L 05/26/18 04:37 Estimated GFR > 60 ml/min 05/26/18 04:37 BUN/Creatinine Ratio 40 % 05/26/18 04:37 Glucose 68 mg/dL (75-100) L 05/26/18 04:37 Calcium 8.9 mg/dL (8.4-10.2) 05/26/18 04:37 Phosphorus 3.20 mg/dL (2.5-4.5) 05/24/18 15:32 Magnesium 2.10 mg/dL (1.7-2.3) 05/27/18 04:25 Total Bilirubin 1.50 mg/dL (0.1-1.2) H 05/26/18 04:37 AST 42 units/L (5-40) H 05/26/18 04:37 ALT 30 units/L (7-56) 05/26/18 04:37 Alkaline Phosphatase 87 units/L (35-129) 05/26/18 04:37 Ammonia 35.0 umol/L (25-60) 05/24/18 15:49 Total Protein 6.8 g/dL (6.3-8.2) 05/26/18 04:37 Albumin 3.8 g/dL (3.9-5) L 05/26/18 04:37 Albumin/Globulin Ratio 1.3 % 05/26/18 04:37 TSH 2.340 mlU/mL (0.270-4.200) 05/24/18 15:32 Free T4 1.27 ng/dL (0.76-1.46) 05/24/18 15:32 Urine Color Yellow (Yellow) 05/25/18 06:30 Urine Turbidity Slightly-cloudy (Clear) 05/25/18 06:30 Urine pH 7.0 (5.0-7.0) 05/25/18 06:30 Ur Specific [place] 1.016 (1.003-1.030) 05/25/18 06:30 Urine Protein <15 mg/dl mg/dL (Negative) 05/25/18 06:30 Urine Glucose (UA) Neg mg/dL (Negative) 05/25/18 06:30 Urine Ketones Tr mg/dL (Negative) 05/25/18 06:30 Urine Blood Sm (Negative) 05/25/18 06:30 Urine Nitrite Neg (Negative) 05/25/18 06:30 Urine Bilirubin Neg (Negative) 05/25/18 06:30 Urine Urobilinogen 4.0 mg/dL (<2.0) 05/25/18 06:30 Ur Leukocyte Esterase Neg (Negative) 05/25/18 06:30 Urine WBC (Auto) 3.0 /HPF (0.0-6.0) 05/25/18 06:30 Urine RBC (Auto) 5.0 /HPF (0.0-6.0) 05/25/18 06:30 U Epithel Cells (Auto) < 1.0 /HPF (0-13.0) 05/25/18 06:30 Calcium Oxalate Crystal 3+ 05/25/18 06:30 Urine Mucus Few /HPF 05/25/18 06:30 Salicylates < 0.3 mg/dL (2.8-20.0) L 05/24/18 15:32 Urine Opiates Screen Presumptive negative 05/25/18 06:30 Urine Methadone Screen Presumptive negative 05/25/18 06:30 Acetaminophen < 5.0 ug/mL (10.0-30.0) L 05/24/18 15:32 Ur Barbiturates Screen Presumptive negative 05/25/18 06:30 Ur Phencyclidine Scrn Presumptive negative 05/25/18 06:30 Ur Amphetamines Screen Presumptive negative 05/25/18 06:30 U Benzodiazepines Scrn Presumptive negative 05/25/18 06:30 Urine Cocaine Screen Presumptive negative 05/25/18 06:30 U Marijuana (THC) Screen Presumptive negative 05/25/18 06:30 Drugs of Abuse Note Disclamer 05/25/18 06:30 Plasma/Serum Alcohol < 0.01 % (0-0.07) 05/24/18 15:32
[2018-05-27 11:05] LABS: BUN/Creatinine Ratio 40; Blood Urea Nitrogen 20 mg/dL (9-20); Calcium 8.8 mg/dL (8.4-10.2); Hemolysis Index 5
[2018-05-27] MEDS: FOLVITE 1 MG, VITAMIN B-1 100 MG, INFUVITE 10 ML in NACL 0.9% 1000 ML 1,000 ML IV SCH (17:44)
[2018-05-28] MEDS: NACL 0.9% 1000 ML 1,000 ML IV SCH ×3 (01:43→22:11)
[2018-05-28] MEDS: FOLVITE PO SCH (09:53)
[2018-05-28] MEDS: K-DUR PO SCH (09:53)
[2018-05-28] MEDS: LIBRIUM PO SCH ×4 (09:53→22:08)
--- NOTE | 2018-05-28 10:15 | Discharge Summary ---
Providers - Providers Date of Admission: 05/24/18 20:46 Attending physician: ALEYDA ANDREWS MD Primary care physician: KILN BURNER HELPER Hospitalization Reason for admission: etoh abuse Condition: Stable Hospital course: 67 YO Male currently an inpatient at [facility] for ETOH Detoxification with chronic Epidural Hematoma secondary to recurrent falls, ETOH Dependence, Severe Malnutrition presents to ED for evaluation. Pt was transfered from [facility] in [place], [place] for treatment of ETOH dependence. Pt was seen and evaluated prior to transfer for Epidural hematoma and was found to have no residual symptoms and no indication for surgical intervention. Pt seen and evaluated in ED. Pt states that he drinks 6-8 drinks daily, and his last drink was 4-5 days ago. Pt states that he has experienced tremors over the past 3 days. Pt denies fever, chills, CP, palpitatons, NVD, syncope, loss of bowel/ bladder continence. Pt is mildly confused but is able to provide detailed history. Pt was found by [facility] staff to have tremors, mild confusion. EMS was notified, and the patient was transported to [facility] for further care and evaluation. Pt seen and evaluated in ED and found to have symptoms consistent with ETOH Withdrawl Syndrome, Encephalopathy. Pt underwent repeat CT Head. Results discussed with Radiologist. Pt has chronic Epidural Hemotoma that is decreasing in size in comparison to previous imaging, without active hemorrhage , and without midline shift. Pt admitted to telemetry and initiated on Alcohol withdrawl protocol. patient was managed in the hospital for ETOH withdrawal with Delirium, this am versus mental status is improved his with discharged home with recommendation to enroll in a detox program. Extensive counseling was greater than patient will need to quit alcohol. Alcohol withdrawal with delirium Epidural hematoma likely 2/2 falls Hypokalemia Elevated liver function tests Severe protein calorie malnutrition related to alcohol Metabolic encephalopathy now resolved Disposition: [id number] HOME UNDER HOME [facility] Time spent for discharge: 35 mins Core Measure Documentation - Palliative Care Palliative Care/ Comfort Measures: Not Applicable - Core Measures Any of the following diagnoses?: none - VTE Discharge Requirements Deep Vein Thrombosis/Pulmonary Embolism Present on Admission: No Exam - Physical Exam Narrative exam: General appearance: Present: cachectic, - EENT Eyes: Present: PERRL ENT: hearing intact, clear oral mucosa - Neck Neck: Present: supple, normal ROM - Respiratory Respiratory effort: normal Respiratory: bilateral: CTA - Cardiovascular Heart Sounds: Present: S1 & S2. Absent: rub, click - Extremities Extremities: pulses symmetrical, No edema Peripheral Pulses: within normal limits - Abdominal General gastrointestinal: Present: soft, non-tender, non-distended, normal bowel sounds Male genitourinary: Present: normal - Integumentary Integumentary: Present: clear, warm, dry - Musculoskeletal Musculoskeletal: gait normal, strength equal bilaterally - Psychiatric Psychiatric: appropriate mood/affect, intact judgment & insight, agitated - Neurologic Neurologic: CNII-XII intact, moves all extremities - Constitutional Vitals: Temp Pulse Resp BP Pulse Ox 98.0 F 80 20 113/71 96 05/28/18 07:48 05/28/18 07:48 05/28/18 07:48 05/28/18 07:48 05/28/18 07:48 Plan Activity: advance as tolerated Diet: low salt Special Instructions: physical therapy, other (must quit ETOH, and should enroll in a detox program) Follow up with: [facility] [Provider Group] - 7 Days PRIMARY [facility]ARE, [Primary Care Provider] - 3-5 Days Prescriptions: chlordiazePOXIDE [Librium] 25 mg PO Q8H #20 capsule Folic Acid [Folvite] 1 mg PO QDAY #30 tablet Multivitamin [Multiple Vitamins] 1 each PO DAILY #30 tablet Thiamine [Vitamin B-1] 100 mg PO QDAY #30 tablet
[2018-05-28 12:20] LABS: BUN/Creatinine Ratio 28; Blood Urea Nitrogen 11 mg/dL (9-20); Calcium 8.7 mg/dL (8.4-10.2); Hemolysis Index 3
[2018-05-28] MEDS: SODIUM CHLORIDE FLUSH SYRINGE 10 ML IV SCH ×2 (13:11→22:09)
--- NOTE | 2018-05-28 22:44 | Progress Note ---
Assessment and Plan Assessment and plan: 67 YO Male currently an inpatient at [facility] for ETOH Detoxification with chronic Epidural Hematoma secondary to recurrent falls, ETOH Dependence, Severe Malnutrition presents to ED for evaluation. Pt was transfered from [facility] in [place], [place] for treatment of ETOH dependence. Pt was seen and evaluated prior to transfer for Epidural hematoma and was found to have no residual symptoms and no indication for surgical intervention. Pt seen and evaluated in ED. Pt states that he drinks 6-8 drinks daily, and his last drink was 4-5 days ago. Pt states that he has experienced tremors over the past 3 days. Pt denies fever, chills, CP, palpitatons, NVD, syncope, loss of bowel/ bladder continence. Pt is mildly confused but is able to provide detailed history. Pt was found by [facility] staff to have tremors, mild confusion. EMS was notified, and the patient was transported to [facility] for further care and evaluation. Pt seen and evaluated in ED and found to have symptoms consistent with ETOH Withdrawl Syndrome, Encephalopathy. Pt underwent repeat CT Head. Results discussed with Radiologist. Pt has chronic Epidural Hemotoma that is decreasing in size in comparison to previous imaging, without active hemorrhage , and without midline shift. Pt admitted to telemetry and initiated on Alcohol withdrawal protocol. (1) Alcohol withdrawal delirium Current Visit: Yes Status: Acute Plan to address problem: Thiamine, Folic Acid, Multivitamin, Ativan PRN, CIWA protocol. Stable for discharge but likely will need rehab. also was from [facility], will check if patient Can reurn to [place], Continue current management (2) Epidural hematoma Current Visit: Yes Status: Acute Plan to address problem: Neuro checks, supportive care, Fall precautions, Repeat CT Head if neuro status changes. (3) Severe malnutrition Current Visit: Yes Status: Acute Plan to address problem: Encourage increased protein intake. (4) Encephalopathy Current Visit: Yes Status: Acute Plan to address problem: CT Head, Neuro checks, thyroid panel, aspiration precautions. (5) DVT prophylaxis Current Visit: Yes Status: Acute Plan to address problem: SCD to BLE while in bed. History Interval history: Patient seen and examined, clincally improving, oriented x 3, withh articulated plan of what to do on discharge, but still unstead on feet Hospitalist Physical - Physical exam Narrative exam: General appearance: Present: cachectic, - EENT Eyes: Present: PERRL ENT: hearing intact, clear oral mucosa - Neck Neck: Present: supple, normal ROM - Respiratory Respiratory effort: normal Respiratory: bilateral: CTA - Cardiovascular Heart Sounds: Present: S1 & S2. Absent: rub, click - Extremities Extremities: pulses symmetrical, No edema Peripheral Pulses: within normal limits - Abdominal General gastrointestinal: Present: soft, non-tender, non-distended, normal bowel sounds Male genitourinary: Present: normal - Integumentary Integumentary: Present: clear, warm, dry - Musculoskeletal Musculoskeletal: gait normal, strength equal bilaterally - Psychiatric Psychiatric: appropriate mood/affect, intact judgment & insight, agitated - Neurologic Neurologic: CNII-XII intact, moves all extremities - Constitutional Vitals: Temp Pulse Resp BP Pulse Ox 98.2 F 95 H 18 140/89 96 05/28/18 16:28 05/28/18 19:29 05/28/18 19:29 05/28/18 19:29 05/28/18 19:29 General appearance: Present: no acute distress, other (agitation improved) Results - Labs CBC & Chem 7: 05/26/18 04:37 05/28/18 10:10 Labs: Laboratory Last Values WBC 5.1 K/mm3 (4.5-11.0) 05/26/18 04:37 RBC 4.14 M/mm3 (3.65-5.03) 05/26/18 04:37 Hgb 14.4 gm/dl (11.8-15.2) 05/26/18 04:37 Hct 42.6 % (35.5-45.6) 05/26/18 04:37 MCV 103 fl (84-94) H 05/26/18 04:37 MCH 35 pg (28-32) H 05/26/18 04:37 MCHC 34 % (32-34) 05/26/18 04:37 RDW 14.9 % (13.2-15.2) 05/26/18 04:37 Plt Count 83 K/mm3 (140-440) L 05/26/18 04:37 Lymph % (Auto) 13.4 % (13.4-35.0) 05/24/18 16:03 [place] % (Auto) 14.5 % (0.0-7.3) H 05/24/18 16:03 Eos % (Auto) 0.1 % (0.0-4.3) 05/24/18 16:03 Baso % (Auto) 0.7 % (0.0-1.8) 05/24/18 16:03 Lymph # 0.6 K/mm3 (1.2-5.4) L 05/24/18 16:03 [place] # 0.6 K/mm3 (0.0-0.8) 05/24/18 16:03 Eos # 0.0 K/mm3 (0.0-0.4) 05/24/18 16:03 Baso # 0.0 K/mm3 (0.0-0.1) 05/24/18 16:03 Add Manual Diff TNR 05/24/18 15:32 Seg Neutrophils % 71.3 % (40.0-70.0) H 05/24/18 16:03 Seg Neutrophils # 3.1 K/mm3 (1.8-7.7) 05/24/18 16:03 Sodium 139 mmol/L (137-145) 05/28/18 10:10 Potassium 3.2 mmol/L (3.6-5.0) L D 05/28/18 10:10 Chloride 102.5 mmol/L (98-107) 05/28/18 10:10 Carbon Dioxide 24 mmol/L (22-30) 05/28/18 10:10 Anion Gap 16 mmol/L 05/28/18 10:10 BUN 11 mg/dL (9-20) 05/28/18 10:10 Creatinine 0.4 mg/dL (0.8-1.5) L 05/28/18 10:10 Estimated GFR > 60 ml/min 05/28/18 10:10 BUN/Creatinine Ratio 28 % 05/28/18 10:10 Glucose 92 mg/dL (75-100) 05/28/18 10:10 POC Glucose 113 (70-105) H 05/28/18 21:37 Calcium 8.7 mg/dL (8.4-10.2) 05/28/18 10:10 Phosphorus 3.20 mg/dL (2.5-4.5) 05/24/18 15:32 Magnesium 2.10 mg/dL (1.7-2.3) 05/27/18 04:25 Total Bilirubin 1.50 mg/dL (0.1-1.2) H 05/26/18 04:37 AST 42 units/L (5-40) H 05/26/18 04:37 ALT 30 units/L (7-56) 05/26/18 04:37 Alkaline Phosphatase 87 units/L (35-129) 05/26/18 04:37 Ammonia 35.0 umol/L (25-60) 05/24/18 15:49 Total Protein 6.8 g/dL (6.3-8.2) 05/26/18 04:37 Albumin 3.8 g/dL (3.9-5) L 05/26/18 04:37 Albumin/Globulin Ratio 1.3 % 05/26/18 04:37 TSH 2.340 mlU/mL (0.270-4.200) 05/24/18 15:32 Free T4 1.27 ng/dL (0.76-1.46) 05/24/18 15:32 Urine Color Yellow (Yellow) 05/25/18 06:30 Urine Turbidity Slightly-cloudy (Clear) 05/25/18 06:30 Urine pH 7.0 (5.0-7.0) 05/25/18 06:30 Ur Specific [place] 1.016 (1.003-1.030) 05/25/18 06:30 Urine Protein <15 mg/dl mg/dL (Negative) 05/25/18 06:30 Urine Glucose (UA) Neg mg/dL (Negative) 05/25/18 06:30 Urine Ketones Tr mg/dL (Negative) 05/25/18 06:30 Urine Blood Sm (Negative) 05/25/18 06:30 Urine Nitrite Neg (Negative) 05/25/18 06:30 Urine Bilirubin Neg (Negative) 05/25/18 06:30 Urine Urobilinogen 4.0 mg/dL (<2.0) 05/25/18 06:30 Ur Leukocyte Esterase Neg (Negative) 05/25/18 06:30 Urine WBC (Auto) 3.0 /HPF (0.0-6.0) 05/25/18 06:30 Urine RBC (Auto) 5.0 /HPF (0.0-6.0) 05/25/18 06:30 U Epithel Cells (Auto) < 1.0 /HPF (0-13.0) 05/25/18 06:30 Calcium Oxalate Crystal 3+ 05/25/18 06:30 Urine Mucus Few /HPF 05/25/18 06:30 Salicylates < 0.3 mg/dL (2.8-20.0) L 05/24/18 15:32 Urine Opiates Screen Presumptive negative 05/25/18 06:30 Urine Methadone Screen Presumptive negative 05/25/18 06:30 Acetaminophen < 5.0 ug/mL (10.0-30.0) L 05/24/18 15:32 Ur Barbiturates Screen Presumptive negative 05/25/18 06:30 Ur Phencyclidine Scrn Presumptive negative 05/25/18 06:30 Ur Amphetamines Screen Presumptive negative 05/25/18 06:30 U Benzodiazepines Scrn Presumptive negative 05/25/18 06:30 Urine Cocaine Screen Presumptive negative 05/25/18 06:30 U Marijuana (THC) Screen Presumptive negative 05/25/18 06:30 Drugs of Abuse Note Disclamer 05/25/18 06:30 Plasma/Serum Alcohol < 0.01 % (0-0.07) 05/24/18 15:32
[2018-05-29] MEDS: NACL 0.9% 1000 ML 1,000 ML IV SCH (06:11)
[2018-05-29] MEDS: LIBRIUM PO SCH ×4 (10:31→21:58)
[2018-05-29] MEDS: FOLVITE PO SCH (10:31)
[2018-05-29] MEDS: SODIUM CHLORIDE FLUSH SYRINGE 10 ML IV SCH ×2 (17:22→22:03)
[2018-05-30] MEDS: SODIUM CHLORIDE FLUSH SYRINGE 10 ML IV SCH (09:27)
[2018-05-30] MEDS: FOLVITE PO SCH (09:27)
[2018-05-30] MEDS: LIBRIUM PO SCH (09:27)
[2018-05-30 09:34] VITALS: BP 109/81
--- NOTE | 2018-05-30 10:42 | Progress Note ---
Assessment and Plan Assessment and plan: 67 YO Male currently an inpatient at [facility] for ETOH Detoxification with chronic Epidural Hematoma secondary to recurrent falls, ETOH Dependence, Severe Malnutrition presents to ED for evaluation. Pt was transfered from [facility] in [place], [place] for treatment of ETOH dependence. Pt was seen and evaluated prior to transfer for Epidural hematoma and was found to have no residual symptoms and no indication for surgical intervention. Pt seen and evaluated in ED. Pt states that he drinks 6-8 drinks daily, and his last drink was 4-5 days ago. Pt states that he has experienced tremors over the past 3 days. Pt denies fever, chills, CP, palpitatons, NVD, syncope, loss of bowel/ bladder continence. Pt is mildly confused but is able to provide detailed history. Pt was found by [place] staff to have tremors, mild confusion. EMS was notified, and the patient was transported to [facility] for further care and evaluation. Pt seen and evaluated in ED and found to have symptoms consistent with ETOH Withdrawl Syndrome, Encephalopathy. Pt underwent repeat CT Head. Results discussed with Radiologist. Pt has chronic Epidural Hemotoma that is decreasing in size in comparison to previous imaging, without active hemorrhage , and without midline shift. Pt admitted to telemetry and initiated on Alcohol withdrawal protocol. (1) Alcohol withdrawal delirium Current Visit: Yes Status: Acute Plan to address problem: Thiamine, Folic Acid, Multivitamin, Ativan PRN, CIWA protocol. Stable for discharge but likely will need rehab. also was from [facility], will check if patient Can reurn to [place], Continue current management (2) Epidural hematoma Current Visit: Yes Status: Acute Plan to address problem: Neuro checks, supportive care, Fall precautions, Repeat CT Head if neuro status changes. (3) Severe malnutrition Current Visit: Yes Status: Acute Plan to address problem: Encourage increased protein intake. (4) Encephalopathy Current Visit: Yes Status: Acute Plan to address problem: CT Head, Neuro checks, thyroid panel, aspiration precautions. (5) DVT prophylaxis Current Visit: Yes Status: Acute Plan to address problem: SCD to BLE while in bed. History Interval history: Patient seen and examined, clinically improving, oriented x 3, Awaiting discharge placement for rehab Hospitalist Physical - Physical exam Narrative exam: General appearance: Present: cachectic, - EENT Eyes: Present: PERRL ENT: hearing intact, clear oral mucosa - Neck Neck: Present: supple, normal ROM - Respiratory Respiratory effort: normal Respiratory: bilateral: CTA - Cardiovascular Heart Sounds: Present: S1 & S2. Absent: rub, click - Extremities Extremities: pulses symmetrical, No edema Peripheral Pulses: within normal limits - Abdominal General gastrointestinal: Present: soft, non-tender, non-distended, normal bowel sounds Male genitourinary: Present: normal - Integumentary Integumentary: Present: clear, warm, dry - Musculoskeletal Musculoskeletal: gait normal, strength equal bilaterally - Psychiatric Psychiatric: appropriate mood/affect, intact judgment & insight, agitated - Neurologic Neurologic: CNII-XII intact, moves all extremities - Constitutional Vitals: Temp Pulse Resp BP Pulse Ox 98.7 F 82 18 109/81 97 05/30/18 07:48 05/30/18 07:48 05/30/18 07:48 05/30/18 07:48 05/30/18 07:48 General appearance: Present: no acute distress, other (agitation improved) Results - Labs CBC & Chem 7: 05/26/18 04:37 05/28/18 10:10 Labs: Laboratory Last Values WBC 5.1 K/mm3 (4.5-11.0) 05/26/18 04:37 RBC 4.14 M/mm3 (3.65-5.03) 05/26/18 04:37 Hgb 14.4 gm/dl (11.8-15.2) 05/26/18 04:37 Hct 42.6 % (35.5-45.6) 05/26/18 04:37 MCV 103 fl (84-94) H 05/26/18 04:37 MCH 35 pg (28-32) H 05/26/18 04:37 MCHC 34 % (32-34) 05/26/18 04:37 RDW 14.9 % (13.2-15.2) 05/26/18 04:37 Plt Count 83 K/mm3 (140-440) L 05/26/18 04:37 Lymph % (Auto) 13.4 % (13.4-35.0) 05/24/18 16:03 Ray % (Auto) 14.5 % (0.0-7.3) H 05/24/18 16:03 Eos % (Auto) 0.1 % (0.0-4.3) 05/24/18 16:03 Baso % (Auto) 0.7 % (0.0-1.8) 05/24/18 16:03 Lymph # 0.6 K/mm3 (1.2-5.4) L 05/24/18 16:03 Ray # 0.6 K/mm3 (0.0-0.8) 05/24/18 16:03 Eos # 0.0 K/mm3 (0.0-0.4) 05/24/18 16:03 Baso # 0.0 K/mm3 (0.0-0.1) 05/24/18 16:03 Add Manual Diff TNR 05/24/18 15:32 Seg Neutrophils % 71.3 % (40.0-70.0) H 05/24/18 16:03 Seg Neutrophils # 3.1 K/mm3 (1.8-7.7) 05/24/18 16:03 Sodium 139 mmol/L (137-145) 05/28/18 10:10 Potassium 3.2 mmol/L (3.6-5.0) L D 05/28/18 10:10 Chloride 102.5 mmol/L (98-107) 05/28/18 10:10 Carbon Dioxide 24 mmol/L (22-30) 05/28/18 10:10 Anion Gap 16 mmol/L 05/28/18 10:10 BUN 11 mg/dL (9-20) 05/28/18 10:10 Creatinine 0.4 mg/dL (0.8-1.5) L 05/28/18 10:10 Estimated GFR > 60 ml/min 05/28/18 10:10 BUN/Creatinine Ratio 28 % 05/28/18 10:10 Glucose 92 mg/dL (75-100) 05/28/18 10:10 POC Glucose 91 (70-105) 05/29/18 05:51 Calcium 8.7 mg/dL (8.4-10.2) 05/28/18 10:10 Phosphorus 3.20 mg/dL (2.5-4.5) 05/24/18 15:32 Magnesium 2.10 mg/dL (1.7-2.3) 05/27/18 04:25 Total Bilirubin 1.50 mg/dL (0.1-1.2) H 05/26/18 04:37 AST 42 units/L (5-40) H 05/26/18 04:37 ALT 30 units/L (7-56) 05/26/18 04:37 Alkaline Phosphatase 87 units/L (35-129) 05/26/18 04:37 Ammonia 35.0 umol/L (25-60) 05/24/18 15:49 Total Protein 6.8 g/dL (6.3-8.2) 05/26/18 04:37 Albumin 3.8 g/dL (3.9-5) L 05/26/18 04:37 Albumin/Globulin Ratio 1.3 % 05/26/18 04:37 TSH 2.340 mlU/mL (0.270-4.200) 05/24/18 15:32 Free T4 1.27 ng/dL (0.76-1.46) 05/24/18 15:32 Urine Color Yellow (Yellow) 05/25/18 06:30 Urine Turbidity Slightly-cloudy (Clear) 05/25/18 06:30 Urine pH 7.0 (5.0-7.0) 05/25/18 06:30 Ur Specific [place] 1.016 (1.003-1.030) 05/25/18 06:30 Urine Protein <15 mg/dl mg/dL (Negative) 05/25/18 06:30 Urine Glucose (UA) Neg mg/dL (Negative) 05/25/18 06:30 Urine Ketones Tr mg/dL (Negative) 05/25/18 06:30 Urine Blood Sm (Negative) 05/25/18 06:30 Urine Nitrite Neg (Negative) 05/25/18 06:30 Urine Bilirubin Neg (Negative) 05/25/18 06:30 Urine Urobilinogen 4.0 mg/dL (<2.0) 05/25/18 06:30 Ur Leukocyte Esterase Neg (Negative) 05/25/18 06:30 Urine WBC (Auto) 3.0 /HPF (0.0-6.0) 05/25/18 06:30 Urine RBC (Auto) 5.0 /HPF (0.0-6.0) 05/25/18 06:30 U Epithel Cells (Auto) < 1.0 /HPF (0-13.0) 05/25/18 06:30 Calcium Oxalate Crystal 3+ 05/25/18 06:30 Urine Mucus Few /HPF 05/25/18 06:30 Salicylates < 0.3 mg/dL (2.8-20.0) L 05/24/18 15:32 Urine Opiates Screen Presumptive negative 05/25/18 06:30 Urine Methadone Screen Presumptive negative 05/25/18 06:30 Acetaminophen < 5.0 ug/mL (10.0-30.0) L 05/24/18 15:32 Ur Barbiturates Screen Presumptive negative 05/25/18 06:30 Ur Phencyclidine Scrn Presumptive negative 05/25/18 06:30 Ur Amphetamines Screen Presumptive negative 05/25/18 06:30 U Benzodiazepines Scrn Presumptive negative 05/25/18 06:30 Urine Cocaine Screen Presumptive negative 05/25/18 06:30 U Marijuana (THC) Screen Presumptive negative 05/25/18 06:30 Drugs of Abuse Note Disclamer 05/25/18 06:30 Plasma/Serum Alcohol < 0.01 % (0-0.07) 05/24/18 15:32
--- NOTE | 2018-05-30 13:35 | Discharge Summary ---
Providers - Providers Date of Admission: 05/24/18 20:46 Date of discharge: 05/30/18 Attending physician: JORGITO ZAZUETA 05/28/18 10:19 Occupational Therapy Evaluate and Treat [CONS] Routine Comment: Reason For Exam: pt alen 05/29/18 13:05 Consult to Mental Health [CONS] Routine Reason For Exam: FROM [place],MEDICALLY CLEAR, RE-ASSESS Place consult to:: MENTAL HEALTH Notified:: YES Phone number called:: [phone] Was contact made?: Yes If yes, spoke with:: ANNIAT Time called:: 13:09 Primary care physician: WO[employer] REPATCHER Hospitalization Condition: Stable Hospital course: 67 YO Male currently an inpatient at [facility] for ETOH Detoxification with chronic Epidural Hematoma secondary to recurrent falls, ETOH Dependence, Severe Malnutrition presents to ED for evaluation. Pt was transfered from [facility] in [place], [place] for treatment of ETOH dependence. Pt was seen and evaluated prior to transfer for Epidural hematoma and was found to have no residual symptoms and no indication for surgical intervention. Pt seen and evaluated in ED. Pt states that he drinks 6-8 drinks daily, and his last drink was 4-5 days ago. Pt states that he has experienced tremors over the past 3 days. Pt denies fever, chills, CP, palpitatons, NVD, syncope, loss of bowel/ bladder continence. Pt is mildly confused but is able to provide detailed history. Pt was found by [place] staff to have tremors, mild confusion. EMS was notified, and the patient was transported to [facility] for further care and evaluation. Pt seen and evaluated in ED and found to have symptoms consistent with ETOH Withdrawl Syndrome, Encephalopathy. Pt underwent repeat CT Head. Results discussed with Radiologist. Pt has chronic Epidural Hemotoma that is decreasing in size in comparison to previous imaging, without active hemorrhage , and without midline shift. Pt admitted to telemetry and initiated on Alcohol withdrawal protocol. Alcohol withdrawal with delirium Epidural hematoma likely 2/2 falls Hypokalemia Elevated liver function tests Severe protein calorie malnutrition related to alcohol Acute Metabolic encephalopathy now resolved Disposition: [id number] [facility] Time spent for discharge: 34 minutes Core Measure Documentation - Palliative Care Palliative Care/ Comfort Measures: Not Applicable - Core Measures Any of the following diagnoses?: none - VTE Discharge Requirements Deep Vein Thrombosis/Pulmonary Embolism Present on Admission: No Has pt received <5 days of overlap therapy or INR<2.0: No Anticoagulant overlap therapy prescribed at discharge: No Contraindication No Overlap Therapy order at DC: Not Indicated Exam - Physical Exam Narrative exam: GEN: WDWN, NAD, Awake, Alert, Orientated HEENT: NCAT, EOMI, PERRL, OP Clear NECK: supple, no adenopathy, no thyromegaly, no JVD CVS/HEART: RRR, normal S1S2, pulses present bilaterally CHEST/LUNGS: CTA B, Symmetrical chest expansion, good air entry bilaterally GI/Abdomen: soft, NTND, good bowel sounds, no guarding or rebound /Bladder: no suprapubic tenderness, no CVA or paraspinal tenderness EXT/Skin: no c/c/e, no obvious rash MSK: FROM x 4 Neuro: CN 2-12 grossly intact, no new focal deficits Psych: calm - Constitutional Vitals: Temp Pulse Resp BP Pulse Ox 98.7 F 82 18 109/81 97 05/30/18 07:48 05/30/18 10:00 05/30/18 10:00 05/30/18 07:48 05/30/18 10:00 Plan Activity: up only with assistance, fall precautions, other (no strenous activity unless cleared by PCP) Diet: low salt Follow up with: [facility] [Provider Group] - 7 Days PRIMARY CARE, [Primary Care Provider] - 3-5 Days Prescriptions: chlordiazePOXIDE [Librium] 25 mg PO Q8H #20 capsule Folic Acid [Folvite] 1 mg PO QDAY #30 tablet Multivitamin [Multiple Vitamins] 1 each PO DAILY #30 tablet Thiamine [Vitamin B-1] 100 mg PO QDAY #30 tablet
== END 2018-05-30 14:20 | disposition home or self-care (01) | DRG 70 ==
LOC: ED 14:32 → 4A 20:46 → 2B-ACE 05-29 14:41
PROVIDERS: ADMIT Internal Medicine; ATTEND Internal Medicine
DX: G93.41 Metabolic encephalopathy (principal); S06.4X0A Epidural hemorrhage without loss of consciousness, initial encounter; E43 Unspecified severe protein-calorie malnutrition; F10.231 Alcohol dependence with withdrawal delirium; E87.6 Hypokalemia; Z68.22 Body mass index [BMI] 22.0-22.9, adult; Y93.89 Activity, other specified; Y92.89 Other specified places as the place of occurrence of the external cause; Y99.8 Other external cause status
CPT/HCPCS: 36415; 70450; 76705; 80048; 80053; 80307; 80320; 81001; 82140; 82962; 83735; 84100; 84439; 84443; 85025; 85027; 93005; 93010; 96365; 96375; G0480; J2060; J3411; J7030